=== PATIENT | female | born 1990 | race Two or more races ===

== ENCOUNTER 2016-12-02 15:15 | Inpatient (IN) | payer BC, OTHER ==
[2016-12-02 16:52] VITALS: BMI 29.7
[2016-12-02] MEDS ORDERED: ELECTROLYTE-148 SOLN 1,000 ML IV SCH ×2 (18:15→18:30)
[2016-12-02] MEDS ORDERED: PROMETHAZINE HCL 25 MG/1 ML VIAL IVPUSH ONE (18:16)
[2016-12-02] MEDS ORDERED: BUTORPHANOL TARTRATE 1 MG/ML VIAL IVPB ONE (18:16)
--- NOTE | 2016-12-02 18:24 | HP ---
Past Medical History - Admission History of Present Illness: 26 y/o with SIUP at 41.1 weeks gestation here in labor. Complains of abdominal pain/cramping since early this a.m. +FM, no VB/LOF/CTx. 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 Pt followed with MFM throughout . HIV negative. GBS negative. 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 Weeks Gestation by Dates: 41.1 ...EDC by Dates: 11/24/16 ...EDC by Sono: 11/24/16 Heme/Onc: Yes: Anemia Infectious Disease: No: HIV, MRSA, STD's Psych: No: Bipolar, Depression Musculoskeletal: No: Chronic low back pain Endocrine: No: Diabetes Mellitus, Hyperthyroidism, Hypothyroidism - Past Surgical History Past Surgical History: Yes: None Hx Myomectomy: No Hx Transabdominal Cerclage: No - Smoking History Smoking history: Never smoked - Alcohol/Substance Use Hx Alcohol Use: No - Social History ADL: Independent History of Recent Travel: No Home Medications - Allergies Allergies/Adverse Reactions: Allergies Allergy/AdvReac Type Severity Reaction Status Date / Time No Known Allergies Allergy Verified 12/02/16 16:12 - Home Medications Home Medications: Ambulatory Orders Vitamins (Sjr) - 1 tab PO DAILY 12/02/16 Review of Systems - Review of Systems Constitutional: reports: No Symptoms Eyes: reports: No Symptoms HENT: reports: No Symptoms Neck: reports: No Symptoms Cardiovascular: reports: No Symptoms Respiratory: reports: No Symptoms Gastrointestinal: reports: No Symptoms Genitourinary: reports: No Symptoms Breasts: reports: No Symptoms Reported Musculoskeletal: reports: No Symptoms Integumentary: reports: No Symptoms Neurological: reports: No Symptoms Endocrine: reports: No Symptoms Hematology/Lymphatic: reports: No Symptoms Psychiatric: reports: No Symptoms Physical Exam - Maternity Vital Signs: Vital Signs Temperature 98.5 F 12/02/16 18:00 Pulse Rate 82 12/02/16 18:00 Respiratory Rate 20 12/02/16 18:00 Blood Pressure 145/82 12/02/16 18:00 O2 Sat by Pulse Oximetry (%) Constitutional: Yes: Well Nourished, No Distress, Calm Eyes: Yes: Conjunctiva Clear, EOM Intact HENT: Yes: Atraumatic, Normocephalic Neck: Yes: Supple, Trachea Midline Cardiovascular: Yes: Regular Rate and Rhythm Lungs: Clear to auscultation - Abdominal Exam/OB Fundal Height: 40 Number of Fetuses: Single Presentation: Vertex Regularity: Regular Intensity: Moderate Heart Rate (range): 130 Category: I Accelerations: Uniform Decelerations: None - Vaginal Exam/OB Dilatation (cm): 3.5 Effacement (%): 80 Amniotic Membrane Status: Intact (exam per nursing staff) Presentation: Vertex/Position Station: -2 - Physical Exam Psychiatric: Yes: Alert, Oriented Hemorrhage Risk Assessment - Risk Factors Medium Risk Factors: Yes: None High Risk Factors: Yes: None Risk Score: 1 Risk Level: Medium Risk Problem List - Problems (1) Active labor at term Code(s): [id number] - (2) Anemia affecting in third trimester Code(s): O99.013 - ANEMIA COMPLICATING , THIRD TRIMESTER Assessment/Plan 26 y/o with SIUP at 41.1 weeks gestation in labor - FHTS cat 1 - AFVSS - active labor at term - for expectant management at this time - GBS negative - routine care
[2016-12-02 18:57] LABS: BASOPHIL 0.4 % (0-2.0); EOSINOPHIL 0.5 % (0-4.5); MCH 21.4 pg (25.7-33.7); MCHC 31.2 g/dl (32.0-36.0); MEAN CELL VOLUME 68.5 fl (80-96); MEAN PLT VOLUME 12.6 fl (7.5-11.1); NEUTROPHILS 69.7 % (42.8-82.8); RDW 17.2 % (11.6-15.6); WHITE BLOOD COUNT 14.6 K/mm3 (4.0-10.0)
[2016-12-02 19:18] LABS: ACTIVATED PTT 26.1 SECONDS (26.9-34.4)
[2016-12-02 19:35] LABS: CALCIUM 8.9 mg/dL (8.5-10.1); COCKROFT - GAULT 145.2225; CREATININE 0.7 mg/dL (0.55-1.02)
[2016-12-02 19:44] LABS: ANISOCYTOSIS 1+; HYPOCHROMIA 2+; MICROCYTOSIS 1+; PLATELET COMMENT2 FEW LARGE PLTS; PLATELET COUNT 162 K/MM3 (134-434); PLATELET ESTIMATE ADEQUATE (NORMAL)
[2016-12-02] MEDS ORDERED: FENTANYL/BUPIVACAINE/NS/PF - PCEA - 50 ML DISP.SYRIN EP SCH (19:45)
[2016-12-02] MEDS ORDERED: CITRIC ACID/SODIUM CITRATE 30 ML UNIT-DOSE CUP PO ONE (22:20)
--- NOTE | 2016-12-02 22:32 | PN ---
Ante-Partal Exam - Subjective Subjective: pt with contraction no rom or bleeding called due to decels with contractions with change in baseline Vital Signs: Vital Signs Temperature 99.0 F 12/02/16 22:00 Pulse Rate 66 12/02/16 20:05 Respiratory Rate 20 12/02/16 20:05 Blood Pressure 105/92 12/02/16 20:05 O2 Sat by Pulse Oximetry (%) 100 12/02/16 20:05 - Exam during Labor Category: II Monitor Accelerations: Present Monitor Decelerations: Early Exam: Vaginal Dilatation (cm): 5-6 Effacement (%): 100 Amniotic Membrane Status: Ruptured Amniotic Fluid: Clear Presentation: Vertex Station: 0 - Intrapartum Hemorrhage Risk Risk Score: 1 Risk Level: Medium Risk - Assessment/Plan Assessment/Plan: Non reassuring tracing intolerence to labor Cat 2 [id number] Plan Primary Section
[2016-12-02] MEDS ORDERED: BENZOCAINE 28 GM HEMORRHOIDAL OINTMENT TP PRN (22:35)
[2016-12-02] MEDS ORDERED: WITCH HAZEL 50% (TUCKS) 40 PAD/JAR PAD TP PRN (22:35)
[2016-12-02] MEDS ORDERED: METHYLERGONOVINE MALEATE 0.2 MG/1 ML AMP IM PRN (22:35)
[2016-12-02] MEDS ORDERED: oxyCODONE HCL 5 MG TABLET PO PRN (22:35)
[2016-12-02] MEDS ORDERED: IBUPROFEN 800 MG/8 ML IJ IVPB PRN (22:35)
[2016-12-02] MEDS ORDERED: SENNOSIDES/DOCUSATE COMBO (SENNA PLUS) TABLET (UD) PO PRN (22:35)
[2016-12-02] MEDS ORDERED: BENZOCAINE 20% 57 GM BOTTLE TP PRN (22:35)
--- NOTE | 2016-12-02 22:35 | OP ---
Operative Note - Note: Operative Date: 12/02/16 Pre-Operative Diagnosis: Nonreassuring tracing Operation: Primary Low transverse Section Findings: Live Surgeon: Janel Bird Vp Organizational Development: Remi Elkins Anesthesia: Epidural Specimens Removed: placenta Estimated Blood Loss (mls): 500 Operative Report Dictated: Yes
[2016-12-02] MEDS ORDERED: OXYTOCIN 20 UNITS in 0.9% NS 1,000 ML IV SCH (22:45)
[2016-12-02 23:27] LABS: ARTERIAL BLD GAS O2 SATURATION 14.8 % (90-98.9); ARTERIAL BLOOD GAS BASE EXCESS -3.4 meq/l (-2-2)
[2016-12-02 23:28] LABS: ARTERIAL BLOOD GAS pH 7.27 (7.35-7.45)
[2016-12-02 23:29] LABS: ARTERIAL BLOOD GAS PO2 13.6 mmHg (80-100)
[2016-12-02 23:30] LABS: VENOUS PH 7.36 (7.32-7.42)
[2016-12-02 23:31] LABS: VENOUS BLOOD GAS HCO3 20.8 meq/L (19-25)
[2016-12-02] MEDS ORDERED: ONDANSETRON 4 MG/2 ML VIAL IVPB PRN (23:44)
[2016-12-03 08:44] LABS: BASOPHIL 0.4 % (0-2.0); EOSINOPHIL 0.4 % (0-4.5); MCH 21.6 pg (25.7-33.7); MCHC 31.6 g/dl (32.0-36.0); MEAN CELL VOLUME 68.3 fl (80-96); MEAN PLT VOLUME 11.9 fl (7.5-11.1); NEUTROPHILS 69.3 % (42.8-82.8); WHITE BLOOD COUNT 16.8 K/mm3 (4.0-10.0)
[2016-12-03] MEDS: PRENATAL VITAMINS W/ FOLIC ACID TABLET (FP) PO SCH (09:56)
--- NOTE | 2016-12-03 11:17 | PN ---
Progress Note (short form) - Note Progress Note: ANESTHESIOLOGY POST-OP CHECK 26F s/p under epidural anesthesia, POD #1. No acute complaints. Pain minimal at rest. Denies backache, headache, N/V. Tolerating PO fluids, enamorado in place. Vital Signs Temperature 98.4 F 12/03/16 06:00 Pulse Rate 78 12/03/16 06:00 Respiratory Rate 18 12/03/16 06:00 Blood Pressure 125/82 12/03/16 06:00 O2 Sat by Pulse Oximetry (%) 99 12/03/16 00:25 Active Medications Benzocaine (Americaine Ointment -) 1 applic TP PRN PRN PRN Reason: PAIN Benzocaine (Americaine 20% [place] -) 1 spray TP PRN PRN PRN Reason: PAIN Bisacodyl (Dulcolax Suppository -) 10 mg RC PRN PRN PRN Reason: CONSTIPATION Citric Acid/Sodium Citrate (Bicitra Oral Solution -) 30 ml PO NOW ONE Stop: 12/02/16 22:21 Last Admin: 12/02/16 22:20 Dose: 30 ml Diphenhydramine HCl (Benadryl Injection -) 25 mg IVPUSH Q4H PRN PRN Reason: Pruritis Parenteral Electrolytes (Plasma-Lyte 148 -) 1,000 mls @ 125 mls/hr IV ASDIR [facility] Last Admin: 12/02/16 21:00 Dose: 125 mls/hr Oxytocin/Sodium Chloride (Normal Saline+20 Units Oxytocin -) 1,000 mls @ 125 mls/hr IV ASDIR [facility] Last Admin: 12/02/16 23:02 Dose: 125 mls/hr Ibuprofen (Motrin -) 600 mg PO Q4H PRN PRN Reason: PAIN Ibuprofen (Caldolor Injection -) 800 mg IVPB Q8H PRN PRN Reason: PAIN OR FEVER Methylergonovine Maleate (Methergine Injection -) 0.2 mg IM Q4H PRN PRN Reason: Excessive Bleeding (L&D) Oxycodone HCl (Roxicodone -) 10 mg PO Q4H PRN PRN Reason: PAIN LEVEL 6-10 Oxycodone HCl (Roxicodone -) 5 mg PO Q4H PRN PRN Reason: PAIN LEVEL 1-5 Multivit/Folic Acid/Iron ( Vitamins (Sjr) -) 1 tab PO DAILY MIRANDA Last Admin: 12/03/16 09:56 Dose: Not Given Senna/Docusate Sodium (Pericolace -) 2 tablet PO HS PRN PRN Reason: CONSTIPATION Simethicone (Mylicon -) 80 mg PO Q4H PRN PRN Reason: GAS Witch Khadijah/Glycerin (Tucks Pads -) 1 pad TP PRN PRN PRN Reason: PAIN Gen: Awake, alert No apparent anesthesia complications. Pain well controlled. Continue management as per primary team.
[2016-12-03 13:18] LABS: PLATELET COUNT 119 K/MM3 (134-434); PLATELET ESTIMATE DECREASED (NORMAL)
[2016-12-03] MEDS: IBUPROFEN 600 MG TABLET (FP) PO PRN ×2 (13:33→21:31)
[2016-12-03] MEDS: SIMETHICONE 80 MG TAB.CHEW (FP) PO PRN ×2 (13:33→21:30)
--- NOTE | 2016-12-03 17:43 | OP ---
DATE OF OPERATION: 12/02/2016 PREOPERATIVE DIAGNOSIS: Nonreassuring tracing. OPERATION: Primary low transverse section. POSTOPERATIVE DIAGNOSIS: Live male infant. SURGEON: Trevon Bird M.D. SAND MIXER OPERATOR: Remi Elkins M.D. ANESTHESIA: Epidural. ANESTHESIOLOGIST: Michoacano Sharma D.O. FINDINGS: Live male delivered in LOT position. Normal tubes & ovaries DESCRIPTION OF PROCEDURE: Patient was taken to the operating room, placed in supine position. Prepped and draped in usual sterile fashion after epidural anesthesia had been given. Timeout was performed in accordance with hospital regulation. Pfannenstiel skin incision was made with a scalpel. Cautery was then used to go through layers of abdominal wall towards the fascia. Fascia was cut in the midline, and cautery was then used to open the fascia in smiling fashion. Judy was then used to bluntly and sharply dissect the rectus muscle off the fascia. The muscle split in the midline. Peritoneal cavity was then entered and carried upward and downward. The bladder retractor was then placed. Vesicouterine reflection was then entered. The bladder was bluntly dissected out of the operative field. The scalpel was then used to make a low transverse uterine incision. Incision was carried upward using bandage scissors. A live male was delivered in OP position. Nose and mouth suction performed. The shoulders were delivered without difficulty. The cord was clamped and cut. Cord blood obtained. Placenta was manually extracted from the uterus. Cord pH obtained. Infant was handed to scales inspector. The placenta was manually extracted from the uterus. The uterus was exteriorized and cleaned with clean lap pads. The uterine incision was then closed using 0 Biosyn suture, first layer continuous interlocking, second layer imbricating the first layer. Hemostasis was achieved. Uterus interiorized. Abdominal cavity cleaned with clean lap pads. Peritoneal sweep was done. Peritoneum was then closed using 0 Biosyn suture. Fascia was then closed using 0 Vicryl suture in 2 parts. Subcutaneous was closed using interrupteds using 0 Biosyn suture, and skin was then closed using 3-0 Vicryl in subcuticular fashion. Wound was washed and dressed. Patient tolerated the procedure well was taken to recovery in stable condition. Estimated blood 500 mL. Wound classification clean-contaminated. Patient was taken to recovery room in stable condition. TREVON BIRD M.D. [id number] JL
--- NOTE | 2016-12-03 19:59 | PN ---
Post Progress Note - Subjective Subjective: Pt seen/examined and doing well. Offers no complaints. Pain controlled. Tolerating regular diet. Ambulating, No yet voiding - enamorado catheter removed at 3 pm today. Denies CP/SOB/F/C/COFFEY. Type of Delivery: Primary C/S Vital Signs: Vital Signs Temperature 98 F 12/03/16 17:00 Pulse Rate 76 12/03/16 17:00 Respiratory Rate 20 12/03/16 18:00 Blood Pressure 124/72 12/03/16 17:00 O2 Sat by Pulse Oximetry (%) 99 12/03/16 00:25 Breast Exam: Yes: Soft Uterus: Yes: Fundus below umbilicus Incision: Yes: Sutures intact Abdomen/GI: Yes: Abdomen soft, Passing flatus, Tolerating PO. No: Abdominal Distention, Tender Lochia: Yes: Rubra Lochia, amount: Small Extremities: Yes: Edema (trace b/l LE edema) Perineum: Yes: Intact Activity: Ambulating - Labs Labs: CBC WBC 16.8 K/mm3 (4.0-10.0) H 12/03/16 07:30 RBC 4.72 M/mm3 (3.60-5.2) 12/03/16 07:30 Hgb 10.2 GM/dL (10.7-15.3) L D 12/03/16 07:30 Hct 32.3 % (32.4-45.2) L 12/03/16 07:30 MCV 68.3 fl (80-96) L 12/03/16 07:30 MCHC 31.6 g/dl (32.0-36.0) L 12/03/16 07:30 RDW 17.0 % (11.6-15.6) H 12/03/16 07:30 Plt Count 119 K/MM3 (134-434) L D 12/03/16 07:30 MPV 11.9 fl (7.5-11.1) H 12/03/16 07:30 Neutrophils % 69.3 % (42.8-82.8) 12/03/16 07:30 Lymphocytes % 22.5 % (8-40) 12/03/16 07:30 Monocytes % 7.4 % (3.8-10.2) 12/03/16 07:30 Eosinophils % 0.4 % (0-4.5) 12/03/16 07:30 Basophils % 0.4 % (0-2.0) 12/03/16 07:30 Platelet Estimate Decreased (NORMAL) 12/03/16 07:30 Platelet Comment Mod plt clumping 12/03/16 07:30 Platelet Comment Few large plts 12/02/16 18:00 Hypochromic-Microcytic 2+ 12/02/16 18:00 Anisocytosis 1+ 12/02/16 18:00 Microcytosis 1+ 12/02/16 18:00 Morphology Comment Slide scanned 12/02/16 18:00 Problem List - Problems (1) Active labor at term Code(s): [id number] - (2) Anemia affecting in third trimester Code(s): O99.013 - ANEMIA COMPLICATING , THIRD TRIMESTER (3) delivery delivered Code(s): O82 - ENCOUNTER FOR DELIVERY WITHOUT INDICATION Assessment/Plan 26 y/o post day #1 s/p primary section for persistent category 2 tracing with variable decelerations remote from delivery - AFVSS - Hgb 10.2 post op, pt stable - encourage ambulation - regular diet, PO pain meds - pt requests discharge home on post op day 2, will discharge home if stable
[2016-12-03] MEDS: ACETAMINOPHEN 325 MG TABLET (FP) PO PRN (21:31)
[2016-12-03] MEDS ORDERED: oxyCODONE HCL 5 MG TABLET PO PRN (22:35)
[2016-12-03] MEDS ORDERED: BISACODYL 10 MG SUPP.RECT RC PRN (22:36)
--- NOTE | 2016-12-04 06:06 | DS ---
Physical Exam-OVERHEAD GARAGE DOOR HANGER Vital Signs: Vital Signs Temperature 98.4 F 12/03/16 21:00 Pulse Rate 69 12/03/16 21:00 Respiratory Rate 20 12/03/16 23:00 Blood Pressure 126/77 12/03/16 21:00 O2 Sat by Pulse Oximetry (%) 99 12/03/16 00:25 Labs: CBC, BMP 12/03/16 07:30 12/02/16 18:00 Delivery - Delivery Section: Primary, Low Flap Transverse Type of Anesthesia: Epidural Episiotomy/Laceration: None EBL (cc): 500 Delivery, Single - Stages of Labor Date 1st Stage Initiatied: 12/02/16 Time 1st Stage Initiated: 18:30 Date of Delivery: 12/02/16 Time of Delivery: 23:00 Time Placenta Delivered: 23:02 Placenta: Yes: Manual Removal - Condition of Infant Computer Programmer/Mainframe Programmer Present: Yes Name: Angus Angelse Infant Gender: Male Weight: 6 lb Position: Left, OT Total Hours ROM (Hrs/Mins): [id number] - 1 Minute Total Score: 9 5 Minutes Total Score: 9 - [place] Feeding Plan Initial Plan: Elected not to breastfeed exclusively throughout hospitalization Discharge Summary Reason For Visit: LABOR ADMIT Current Active Problems Active labor at term (Acute) Anemia affecting in third trimester (Acute) delivery delivered (Acute) Procedures: Principal: Primary section due to intolerance to labor. Hospital Course: Uncomplicated post recovery. Patient was passing flatus, voiding, ambulating and tolerating regular diet on post op day 2 and was discharged home in stable condition on post op day 2. Condition: Good - Instructions Diet, Activity, Other Instructions: Physical activity Resume your normal everyday activity as tolerated but no heavy lifting or strenuous exercise until seen by your surgeon. You may walk unlimited amounts and climb stairs. You may resume driving the car when you feel safe and comfortable behind the wheel. No sexual activity as instructed for 6 weeks. Wound care If there are tapes on the skin leave them in place. They will peel off in the next 7 to 10 days. Do Not Peel them off. You may shower the day after surgery. If there are tapes present on the skin, you may shower over them. Diet There are no dietary restrictions. Eat healthy, high-fiber foods. Drink 6 to 8 glasses of liquid each day. This will assist in keeping your bowels regular. Pain management You may take Tylenol or Ibuprofen (for example, Motrin, Advil etc.) for mild pain. If any pain prescription medication is prescribed, it should be taken as prescribed for moderate to severe pain. Call MD for any of the following: Severe pain not relieved by medication Fever of 101 or higher Excessive bleeding or drainage on dressing Inability to urinate Referrals: Emily Sharpe DO [Staff Physician] - 1 Week Disposition: HOME - Home Medications Comprehensive Discharge Medication List: Ambulatory Orders Vitamins (Sjr) - 1 tab PO DAILY 12/02/16 Oxycodone HCl/Acetaminophen [Percocet 5-325 mg Tablet -] 1 tab PO Q4H #30 tablet MDD 6 12/03/16
--- NOTE | 2016-12-04 06:07 | PN ---
Post Progress Note - Subjective Subjective: Pt seen/evaluated and doing well. Pain controlled. Tolerating diet. Ambulating, voiding, passing flatus. Denies CP/SOB/F/c/COFFEY. No other complaints. Type of Delivery: Primary C/S Vital Signs: Vital Signs Temperature 98.4 F 12/03/16 21:00 Pulse Rate 69 12/03/16 21:00 Respiratory Rate 20 12/03/16 23:00 Blood Pressure 126/77 12/03/16 21:00 O2 Sat by Pulse Oximetry (%) 99 12/03/16 00:25 Uterus: Yes: Fundus Firm, Fundus below umbilicus Incision: Yes: Sutures intact Abdomen/GI: Yes: Abdomen soft, Passing flatus, Tolerating PO. No: Tender Lochia: Yes: Rubra Lochia, amount: Small Extremities: Yes: Calves non-tender. No: Edema Perineum: Yes: Intact. No: Laceration Activity: Ambulating - Labs Labs: CBC WBC 16.8 K/mm3 (4.0-10.0) H 12/03/16 07:30 RBC 4.72 M/mm3 (3.60-5.2) 12/03/16 07:30 Hgb 10.2 GM/dL (10.7-15.3) L D 12/03/16 07:30 Hct 32.3 % (32.4-45.2) L 12/03/16 07:30 MCV 68.3 fl (80-96) L 12/03/16 07:30 MCHC 31.6 g/dl (32.0-36.0) L 12/03/16 07:30 RDW 17.0 % (11.6-15.6) H 12/03/16 07:30 Plt Count 119 K/MM3 (134-434) L D 12/03/16 07:30 MPV 11.9 fl (7.5-11.1) H 12/03/16 07:30 Neutrophils % 69.3 % (42.8-82.8) 12/03/16 07:30 Lymphocytes % 22.5 % (8-40) 12/03/16 07:30 Monocytes % 7.4 % (3.8-10.2) 12/03/16 07:30 Eosinophils % 0.4 % (0-4.5) 12/03/16 07:30 Basophils % 0.4 % (0-2.0) 12/03/16 07:30 Platelet Estimate Decreased (NORMAL) 12/03/16 07:30 Platelet Comment Mod plt clumping 12/03/16 07:30 Platelet Comment Few large plts 12/02/16 18:00 Hypochromic-Microcytic 2+ 12/02/16 18:00 Anisocytosis 1+ 12/02/16 18:00 Microcytosis 1+ 12/02/16 18:00 Morphology Comment Slide scanned 12/02/16 18:00 Problem List - Problems (1) Active labor at term Code(s): QCU3036 - (2) Anemia affecting in third trimester Code(s): O99.013 - ANEMIA COMPLICATING , THIRD TRIMESTER (3) delivery delivered Code(s): O82 - ENCOUNTER FOR DELIVERY WITHOUT INDICATION Assessment/Plan 26 y/o post day #2 s/p primary section for persistent category 2 tracing with variable decelerations remote from delivery - AFVSS - Hgb 10.2 post op, repeat CBC pending this a.m. - encourage ambulation - regular diet, PO pain meds - stable for discharge home
[2016-12-04 08:59] VITALS: BP 127/87; PULSE 72; TEMP 98.6
[2016-12-04] MEDS: PRENATAL VITAMINS W/ FOLIC ACID TABLET (FP) PO SCH (09:28)
[2016-12-04] MEDS: IBUPROFEN 600 MG TABLET (FP) PO PRN (09:29)
[2016-12-04] MEDS: ACETAMINOPHEN 325 MG TABLET (FP) PO PRN (09:30)
[2016-12-04] MEDS: SIMETHICONE 80 MG TAB.CHEW (FP) PO PRN (09:31)
[2016-12-04] MEDS ORDERED: PATIENT'S OWN MEDICATION (NON-FORMULARY) (Prenatal Vitamins (Sjr) - 1 TAB) PO SCH (10:00)
--- NOTE | 2016-12-05 17:05 | PATH ---
Surgical Pathology Report Patient Name: TELLY ISAAC Med. Rec. #: [id number] /Age/Gender: 1990 (Age: 26) / F Account: [id number] Location: [facility] OBS/APPLICATION CHEMIST Taken: 12/02/2016 Received: 12/03/2016 Reported: 12/05/2016 Physicians: Emily Sharpe M.D. Specimen(s) Received PLACENTA Clinical History 41.1 week gestation per ultrasound, marginal cord insertion Aberrant right subclavian artery and pyelocallectasis Final Diagnosis PLACENTA, DELIVERY: DISRUPTED THIRD TRIMESTER PLACENTA WITH MULTIPLE PLACENTAL INFARCTS OCCUPYING APPROXIMATELY 20% OF TOTAL PLACENTAL VOLUME, ASSOCIATED CALCIFICATION, MARGINALLY INSERTED THREE-VESSEL UMBILICAL CORD, AND UNREMARKABLE PLACENTAL MEMBRANES. Electronically Signed Morris Nettles M.D. Gross Description The specimen is received fresh labeled placenta and is a 407 gram, 16.5 x 12.5 x 3.0 cm. placenta with attached membranes and umbilical cord. The attached membranes are he, translucent with focal opacities and insert marginally. The umbilical cord measures 17 cm. in length and averages 0.9 cm. in diameter. The cord inserts at the margin. No true knots or strictures are identified. Cut surface of the umbilical cord reveals 3 vessels. The surface is moya-blue with minimal fibrin deposition and appropriate caliber vessels. The maternal surface is red-brown with focal defects. Sectioning reveals abundant he, firm intraparenchymal lesions comprising approximately 20% of the placental parenchyma. The remaining parenchyma is red-brown and spongy. Crm Administrator sections are submitted in 6 cassettes as follows: 1-membrane rolls and umbilical cord; 2-5-lesions; 6-normal placental parenchyma. 12/04/2016 [facility]12/04/2016
== END 2016-12-04 10:45 | disposition home or self-care (01) | DRG 766 ==
LOC: JLDR 15:15 → J3W 12-03 01:25
PROVIDERS: ADMIT Obstetrics & Gynecology; ATTEND Obstetrics & Gynecology
PROC: 10D00Z1 Extraction of Products of Conception, Low, Open Approach (ICD-10-PCS; principal; 2016-12-02)
DX: O48.0 Post-term pregnancy (principal); O76 Abnormality in fetal heart rate and rhythm complicating labor and delivery; O99.02 Anemia complicating childbirth; Z3A.41 41 weeks gestation of pregnancy; Z37.0 Single live birth
CPT/HCPCS: 36415; 36600; 71020-TC; 80048; 82803; 85025; 85610; 85730; 86593; 86850; 86900; 86901; 88307-TC